=== PATIENT | female | born 1980 | race American Indian/Alaskan Native ===

== ENCOUNTER 2017-07-21 13:27 | Emergency (ER) | payer SELFPAY ==
[2017-07-21 14:08] VITALS: BP 187/112
[2017-07-21 14:46] LABS: Basophils % (Auto) 0.6 % (0.0-1.8); Eosinophils % (Auto) 1.8 % (0.0-4.3); Hematocrit 38.1 % (30.3-42.9); Hemoglobin 12.9 gm/dl (10.1-14.3); Mean Corpuscular HGB Conc 34 % (30-34); Mean Corpuscular Hemoglobin 30 pg (28-32); Mean Corpuscular Volume 88 fl (79-97); Platelet Count 271 K/mm3 (140-440); Red Blood Count 4.31 M/mm3 (3.65-5.03); Red Cell Distribution Width 13.7 % (13.2-15.2); White Blood Count 15.9 K/mm3 (4.5-11.0)
[2017-07-21 14:47] LABS: Bilirubin,Urine NEG (Negative); Blood,Urine NEG (Negative); Ketones,Urine NEG (Negative); Leukocyte Esterase,Urine NEG (Negative); Mucus,Urine 1+ /HPF; Nitrite,Urine NEG (Negative); Protein,Urine <15 mg/dL mg/dL (Negative)
== END 2017-07-21 18:46 | disposition left against medical advice (07) ==
LOC: ED 13:27
DX: N93.9 Abnormal uterine and vaginal bleeding, unspecified (principal); Z53.21 Procedure and treatment not carried out due to patient leaving prior to being seen by health care provider
CPT/HCPCS: 36415; 81001; 84702; 85025; 86850; 86900; 86901

== ENCOUNTER 2017-10-31 07:24 | Emergency (ER) | payer MEDICAID ==
[2017-10-31] MEDS ORDERED: LET TOPICAL TP ONE (10:31)
[2017-10-31] MEDS ORDERED: TYLENOL ONE (10:47)
[2017-10-31] MEDS ORDERED: TYLENOL PO ONE (10:53)
[2017-10-31] MEDS ORDERED: XYLOCAINE 2% INFILTRATI ONE ×2 (10:53→10:54)
[2017-10-31] MEDS ORDERED: TRIPLE ANTIBIOTIC TP ONE ×2 (11:19)
--- NOTE | 2017-10-31 11:28 | Emergency Department Report ---
ED Upper Extremity Inj HPI - General Chief Complaint: Extremity Injury, Upper Stated Complaint: RIGHT HAND PAIN Time Seen by Provider: 10/31/17 11:19 Source: patient Mode of arrival: Ambulatory Limitations: No Limitations - History of Present Illness Initial Comments: 36-year-old female that is 21 weeks comes in for getting a splinter in her right hand from the door. Patient point to the entry of the fifth digit that is transverse to the digit itself. Patient reports no known drug allergies. She reports a history of hypertension. MD Complaint: Injury to:: right Other Extremity Injury: Hand: Right Handedness: right Place: home Improves With: none - Related Data Allergies Allergy/AdvReac Type Severity Reaction Status Date / Time No Known Allergies Allergy Verified 07/21/17 14:08 ED Review of Systems ROS: Stated complaint: RIGHT HAND PAIN Other details as noted in HPI Constitutional: denies: chills, fever Eyes: denies: eye pain, eye discharge, vision change ENT: denies: ear pain, throat pain Respiratory: denies: cough, shortness of breath, wheezing Cardiovascular: denies: chest pain, palpitations Endocrine: no symptoms reported Gastrointestinal: denies: abdominal pain, nausea, diarrhea Genitourinary: denies: urgency, dysuria, discharge Musculoskeletal: denies: back pain, joint swelling, arthralgia Skin: other (splinter in her right hand). denies: rash, lesions Neurological: denies: headache, weakness, paresthesias Psychiatric: denies: anxiety, depression Hematological/Lymphatic: denies: easy bleeding, easy bruising ED Past Medical Hx - Past Medical History Previous Medical History?: Yes Hx Hypertension: Yes - Surgical History Past Surgical History?: No - Social History Smoking Status: Current Every Day Smoker Substance Use Type: None ED Physical Exam - General Limitations: No Limitations General appearance: alert, in no apparent distress - Head Head exam: Present: atraumatic, normocephalic - Eye Eye exam: Present: normal appearance - Neck Neck exam: Present: normal inspection - Expanded Upper Extremity Exam Right Hand Wrist exam: Present: tenderness, other (able to palpate the splinter. No drainage no swelling.) Vascular: Present: normal capillary refill - Neurological Exam Neurological exam: Present: alert, oriented X3 - Psychiatric Psychiatric exam: Present: normal affect, normal mood - Skin Skin exam: Present: warm, dry, intact, normal color. Absent: rash ED Course Vital Signs 10/31/17 10/31/17 08:14 11:29 Temperature 98.3 F Pulse Rate 89 76 Respiratory 16 18 Rate Blood Pressure 148/103 146/89 O2 Sat by Pulse 99 100 Oximetry ED Medical Decision Making - Medical Decision Making This patient's been evaluated by this provider fast track. Splinter was removed by this provider. Artery was cleaned and draped cleaned with Betadine. 3 mL of lidocaine 2% injected around the exit portion of the splinter where I was able to remove. Splinter was removed with curved hemostats. Patient was cleaned up and bandaged by nursing staff. Patient tolerated procedure well. Discussed with patient the signs of infection. Patient left before his provider could discharge her properly. 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 Patient verbalized understanding she reports that she will call and get an appointment this week. Critical care attestation.: If time is entered above; I have spent that time in minutes in the direct care of this critically ill patient, excluding procedure time. ED Disposition Clinical Impression: Proteinuria during Superficial foreign body (splinter) of fingers, without major open wound, infected Qualifiers: Encounter type: initial encounter Qualified Code(s): S60.459A - Superficial foreign body of unspecified finger, initial encounter Disposition: - TO HOME OR SELFCARE Is pt being admited?: No Does the pt Need Aspirin: No Condition: Stable Referrals: JENSEN MCKEON MD [Primary Care Provider] - 3-5 Days
[2017-10-31 11:32] VITALS: BP 146/89
[2017-10-31 12:32] LABS: Bacteria,Urine 1+ /HPF (Negative); Bilirubin,Urine NEG (Negative); Blood,Urine NEG (Negative); Color,Urine Yellow (Yellow); Mucus,Urine 1+ /HPF; Nitrite,Urine NEG (Negative)
--- NOTE | 2017-10-31 13:54 | Emergency Department Report ---
Blank Doc - Documentation Documentation: THis provider discussed with nurse Tang to recheck blood pressure. Patient was not able to be found to recheck blood pressure it appears the patient went AMA. This provider made attempt to contact patient on her cell phone to discuss her labs and concerns. Patient has not answer or call back.
== END 2017-10-31 13:00 | disposition home or self-care (01) ==
LOC: ED 07:24
DX: O26.892 Other specified pregnancy related conditions, second trimester (principal); S60.456A Superficial foreign body of right little finger, initial encounter; O12.12 Gestational proteinuria, second trimester; Z3A.21 21 weeks gestation of pregnancy; F17.200 Nicotine dependence, unspecified, uncomplicated; I10 Essential (primary) hypertension
CPT/HCPCS: 81001; 99283; A6250

== ENCOUNTER 2018-02-06 19:31 | Observation (INO) | payer BC, MEDICAID ==
[2018-02-06] MEDS ORDERED: LACTATED RINGERS 500 ML IV ONE (21:01)
[2018-02-06 21:15] LABS: Hemoglobin 11.8 gm/dl (10.1-14.3); Mean Corpuscular HGB Conc 36 % (30-34); Mean Corpuscular Hemoglobin 31 pg (28-32); Mean Corpuscular Volume 88 fl (79-97); Platelet Count 217 K/mm3 (140-440); Red Blood Count 3.76 M/mm3 (3.65-5.03); Red Cell Distribution Width 14.5 % (13.2-15.2)
[2018-02-06 21:31] LABS: Bilirubin,Urine NEG (Negative); Blood,Urine SM (Negative); Color,Urine Amber (Yellow); Mucus,Urine 1+ /HPF; Protein,Urine <15 mg/dL mg/dL (Negative)
[2018-02-06 21:42] LABS: Alanine Aminotransferase 15 units/L (7-56); Uric Acid 5.8 mg/dL (3.5-7.6)
[2018-02-06] MEDS ORDERED: APRESOLINE IV PRN (22:01)
[2018-02-06] MEDS: NORMODYNE PO SCH (22:54)
[2018-02-06] MEDS: NORVASC PO SCH (22:54)
[2018-02-06] MEDS ORDERED: LACTATED RINGERS 1,000 ML IV SCH (23:00)
[2018-02-07] MEDS ORDERED: AMBIEN PO PRN (00:07)
--- NOTE | 2018-02-07 09:01 | History and Physical Report ---
History of Present Illness Date of examination: 02/07/18 Date of admission: 02/06/18 22:10 Chief complaint: 35 weeks gestation with elevated BP. History of present illness: Patient is a 37 year old , LMP 06/04/17, EDC 03/11/18 at 35 weeks and 2 days gestation who was sent in for elevated BP. She has a history of chronic HTN and has been co-managed with [facility]. She has been on labetolol which was switched to aldomet and norvasc was added recently. Her 24-hr urine was not completed. She went to [facility] for a routine visit yesterday and her BP was found to be 165/95. On admission, her BP was 140/89, she denied any headache, visual disturbances or RUQ pain. NST is CAT 1, BPP is 05/03. 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 History: abnormal PAP smear, fibroids, herpes, trichomonas Family/Genetic History: none Social history: smoking, other (marijuana) - Obstetrical History Expected Date of Delivery: 03/11/18 Actual Gestation: 35 Week(s) 3 Day(s) : 6 Para: 3 Hx # Term Pregnancies: 1 Number of Pregnancies: 2 Spontaneous Abortions: 2 Number of Living Children: 2 #1 Gender: Female year: 1,[birth year] Birthweight: 3.9 kg Method of Delivery: Vaginal Gestational age at delivery: 40 Complications: none #2 year: 2,004 Birthweight: 2.04 kg Method of Delivery: Vaginal Gestational age at delivery: 34 Complications: other ( labor) #3 year: 2,014 Birthweight: 727 g Method of Delivery: Vaginal Gestational age at delivery: 28 Complications: other (PPROM) Medications and Allergies Allergies Allergy/AdvReac Type Severity Reaction Status Date / Time No Known Allergies Allergy Verified 07/21/17 14:08 Home Medications Medication Instructions Recorded Confirmed Last Taken Type Hydroxyprogesterone Caproat/Pf 1 syr IM QWEEK 02/06/18 02/06/18 01/31/18 History [[place] 250 mg/ml Vial] Labetalol HCl 300 mg PO QDAY 02/06/18 02/06/18 02/06/18 16:00 History Methyldopa 1 tab PO QDAY 0502/06/18 02/04/18 History amLODIPine [Norvasc] 5 mg PO DAILY 02/06/18 02/06/18 02/05/18 History Active Meds: Active Medications Amlodipine Besylate (Norvasc) 5 mg PO QDAY [facility] Last Admin: 02/06/18 22:54 Dose: 5 mg Hydralazine HCl (Apresoline) 5 mg IV Q30MIN PRN PRN Reason: Hypertension Lactated Ringer's (Lactated Ringers) 1,000 mls @ 125 mls/hr IV DIRECT JUHI Labetalol HCl (Normodyne) 300 mg PO BID [facility] Last Admin: 02/06/18 22:54 Dose: 300 mg Zolpidem Tartrate (Ambien) 10 mg PO QHS PRN PRN Reason: Insomnia Last Admin: 02/07/18 00:30 Dose: 10 mg - Vital Signs Vital signs: Vital Signs Pulse BP Pulse Ox 88 180/99 98 02/06/18 20:01 02/06/18 20:01 02/06/18 20:01 Temp Pulse Resp BP Pulse Ox 98.7 F 49 L 18 160/66 83 L 02/07/18 07:14 02/07/18 08:40 02/07/18 07:14 02/07/18 07:20 02/07/18 08:40 - Physical Exam Cardiovascular: Normal S1, Normal S2 Lungs: Positive: Clear to auscultation Vulva: both: normal Adnexa: both: normal Deep Tendon Reflex Grade: Normal +2 - Obstetrical FHR: category 1 Uterine Contraction Monitor Mode: External Cervical Dilatation: 0 Cervical Effacement Percentage: 30 station: -3 Uterine Contraction Pattern: Absent Results Result Diagrams: 02/07/18 09:33 02/06/18 20:56 Abnormal lab results 02/06/18 02/06/18 Range/Units 20:56 20:56 WBC 14.5 H (4.5-11.0) K/mm3 MCHC 36 H (30-34) % Creatinine 0.6 L (0.7-1.2) mg/dL Lactate Dehydrogenase 213 H (91-180) units/L All other labs normal. Assessment and Plan - Patient Problems (1) 35 weeks gestation of Current Visit: Yes Status: Acute Plan to address problem: Admit to Labor floor. (2) Rh negative state in antepartum period Current Visit: Yes Status: Acute Plan to address problem: For Rhogam after delivery. (3) Advanced maternal age (AMA) in Current Visit: Yes Status: Acute Plan to address problem: Genetics were normal. (4) Chronic hypertension affecting Current Visit: Yes Status: Acute Plan to address problem: Toxemia labs were normal. Continue BP, DTRs monitoring. Continuous monitoring. BP has become stable since admision. Will start magnesium if BP becomes elevated. Will induce labor if patient or baby becomes unstable. Case was discussed with [facility].
--- NOTE | 2018-02-07 09:31 | Progress Note ---
Assessment and Plan - Patient Problems (1) 35 weeks gestation of Current Visit: Yes Status: Acute (2) Rh negative state in antepartum period Current Visit: Yes Status: Acute (3) Advanced maternal age (AMA) in Current Visit: Yes Status: Acute Plan to address problem: Genetics were normal. (4) Pre-eclampsia superimposed on chronic hypertension Current Visit: Yes Status: Acute Plan to address problem: Magnesium sulfate. Monitor BP, Mg levels, DTRs, urine output. Continue monitoring. Labor induction as per [facility]. [facility] is on diversion, therefore, patient will be transferred to [facility]. Dr. Rajput was made aware. Reason for transfer was discussed with the patient. Subjective - Subjective Date of service: 02/07/18 Principal diagnosis: 35 weeks with superimposed pre-eclampsia Interval history: Patient is a 37 year old , LMP 06/04/17, EDC 03/11/18 at 35 weeks and 2 days gestation who was sent in for elevated BP. She has a history of chronic HTN and has been co-managed with [facility]. She has been on labetolol which was switched to aldomet and norvasc was added recently. Her 24-hr urine was not completed. She went to [facility] for a routine visit yesterday and her BP was found to be 165/95. On admission, her BP was 140/89, she denied any headache, visual disturbances or RUQ pain. NST is CAT 1, BPP is 8/8. Toxemia labs were normal. 24 -urine is in progress. During the night, her BP has been labile and she denied any symptoms. This AM, it started to be elevated to the 160's/90's despite rest, labetolol and norvasc. Cervix: closed/50%/-2. Objective - Vital Signs Vital Signs: Vital Signs - 12hr 02/06/18 02/06/18 02/06/18 21:36 21:41 21:42 Temperature Pulse Rate 71 72 72 Respiratory Rate Blood Pressure 161/85 O2 Sat by Pulse 99 99 Oximetry 02/06/18 02/06/18 02/06/18 21:46 21:51 21:56 Temperature Pulse Rate 75 75 71 Respiratory Rate Blood Pressure O2 Sat by Pulse 99 99 99 Oximetry 02/06/18 02/06/18 02/06/18 22:01 22:02 22:06 Temperature Pulse Rate 72 70 74 Respiratory Rate Blood Pressure 143/81 O2 Sat by Pulse 97 98 Oximetry 02/06/18 02/06/18 02/06/18 22:11 22:54 22:56 Temperature 98.0 F Pulse Rate 69 69 Respiratory 20 Rate Blood Pressure 176/97 O2 Sat by Pulse 97 Oximetry 02/06/18 02/06/18 02/06/18 22:58 23:03 23:12 Temperature Pulse Rate 64 70 Respiratory Rate Blood Pressure 176/97 O2 Sat by Pulse 99 99 95 Oximetry 02/06/18 02/06/18 02/06/18 23:22 23:23 23:43 Temperature Pulse Rate 77 39 L 83 Respiratory Rate Blood Pressure 159/87 145/77 O2 Sat by Pulse 0 L Oximetry 02/07/18 02/07/18 02/07/18 00:03 00:23 01:03 Temperature Pulse Rate 77 84 85 Respiratory Rate Blood Pressure 150/85 143/76 137/77 O2 Sat by Pulse Oximetry 02/07/18 02/07/18 02/07/18 01:23 01:43 02:43 Temperature Pulse Rate 86 93 H 83 Respiratory Rate Blood Pressure 142/75 154/103 138/72 O2 Sat by Pulse Oximetry 02/07/18 02/07/18 02/07/18 03:04 03:23 03:32 Temperature 98.3 F Pulse Rate 90 81 Respiratory 18 Rate Blood Pressure 150/82 141/67 O2 Sat by Pulse Oximetry 02/07/18 02/07/18 02/07/18 03:34 04:33 04:48 Temperature Pulse Rate 75 86 Respiratory Rate Blood Pressure 171/81 164/82 O2 Sat by Pulse 76 L Oximetry 02/07/18 02/07/18 02/07/18 05:19 05:50 06:20 Temperature Pulse Rate 82 78 76 Respiratory Rate Blood Pressure 154/80 140/78 163/98 O2 Sat by Pulse Oximetry 02/07/18 02/07/18 02/07/18 06:24 06:26 06:29 Temperature Pulse Rate 76 77 86 Respiratory Rate Blood Pressure 161/87 143/74 O2 Sat by Pulse 99 99 Oximetry 02/07/18 02/07/18 02/07/18 06:34 06:39 06:44 Temperature Pulse Rate 76 79 75 Respiratory Rate Blood Pressure O2 Sat by Pulse 99 100 99 Oximetry 02/07/18 02/07/18 02/07/18 06:49 07:10 07:14 Temperature 98.7 F Pulse Rate 74 Respiratory 18 Rate Blood Pressure 127/70 O2 Sat by Pulse 100 88 99 Oximetry 02/07/18 02/07/18 02/07/18 07:17 07:18 07:20 Temperature Pulse Rate 74 74 77 Respiratory Rate Blood Pressure 158/88 160/66 O2 Sat by Pulse 99 Oximetry 02/07/18 02/07/18 02/07/18 07:23 07:28 07:33 Temperature Pulse Rate 72 87 68 Respiratory Rate Blood Pressure O2 Sat by Pulse 100 99 99 Oximetry 02/07/18 02/07/18 02/07/18 07:38 07:55 08:00 Temperature Pulse Rate 68 81 Respiratory Rate Blood Pressure O2 Sat by Pulse 99 94 100 Oximetry 02/07/18 02/07/18 02/07/18 08:05 08:10 08:15 Temperature Pulse Rate 72 77 80 Respiratory Rate Blood Pressure O2 Sat by Pulse 99 98 100 Oximetry 02/07/18 02/07/18 02/07/18 08:26 08:31 08:32 Temperature Pulse Rate 92 H 55 L Respiratory Rate Blood Pressure O2 Sat by Pulse 86 78 L 80 L Oximetry 02/07/18 02/07/18 02/07/18 08:39 08:40 09:08 Temperature Pulse Rate 49 L Respiratory Rate Blood Pressure O2 Sat by Pulse 80 L 83 L 78 L Oximetry 02/07/18 02/07/18 02/07/18 09:16 09:22 09:28 Temperature Pulse Rate 54 L Respiratory Rate Blood Pressure O2 Sat by Pulse 86 80 L 86 Oximetry 02/07/18 02/07/18 09:29 09:34 Temperature Pulse Rate 75 87 Respiratory Rate Blood Pressure 160/92 O2 Sat by Pulse 94 98 Oximetry - Exam Cardiovascular: Normal S1, Normal S2 Lungs: Clear to auscultation Vulva: both: normal FHR: category 1 Uterine Contraction Monitor Mode: External Cervical Dilatation: 0 Cervical Effacement Percentage: 50 station: -3 Uterine Contraction Pattern: Absent Deep Tendon Reflex Grade: Normal but brisk +3 - Labs Labs: Abnormal Labs 02/06/18 02/06/18 20:56 20:56 WBC 14.5 H MCHC 36 H Creatinine 0.6 L Lactate Dehydrogenase 213 H Laboratory Results - last 24 hr 02/06/18 02/06/18 02/06/18 20:56 20:56 20:56 WBC 14.5 H RBC 3.76 Hgb 11.8 Hct 33.0 MCV 88 MCH 31 MCHC 36 H RDW 14.5 Plt Count 217 Creatinine 0.6 L Estimated GFR > 60 Uric Acid 5.8 AST 12 ALT 15 Lactate Dehydrogenase 213 H Urine Color [place] Urine Turbidity Clear Urine pH 6.0 Ur Specific [place] 1.019 Urine Protein <15 mg/dl Urine Glucose (UA) Neg Urine Ketones Neg Urine Blood Sm Urine Nitrite Neg Urine Bilirubin Neg Urine Urobilinogen 2.0 Ur Leukocyte Esterase Neg Urine WBC (Auto) 1.0 Urine RBC (Auto) 14.0 U Epithel Cells (Auto) 3.0 Urine Mucus 1+ Blood Type Antibody Screen 02/06/18 23:00 WBC RBC Hgb Hct MCV MCH MCHC RDW Plt Count Creatinine Estimated GFR Uric Acid AST ALT Lactate Dehydrogenase Urine Color Urine Turbidity Urine pH Ur Specific [place] Urine Protein Urine Glucose (UA) Urine Ketones Urine Blood Urine Nitrite Urine Bilirubin Urine Urobilinogen Ur Leukocyte Esterase Urine WBC (Auto) Urine RBC (Auto) U Epithel Cells (Auto) Urine Mucus Blood Type O NEGATIVE Antibody Screen Negative
[2018-02-07 09:56] LABS: Hemoglobin 11.7 gm/dl (10.1-14.3); Mean Corpuscular HGB Conc 36 % (30-34); Mean Corpuscular Hemoglobin 31 pg (28-32); Mean Corpuscular Volume 88 fl (79-97); Platelet Count 215 K/mm3 (140-440); Red Blood Count 3.75 M/mm3 (3.65-5.03); Red Cell Distribution Width 14.5 % (13.2-15.2)
[2018-02-07] MEDS ORDERED: MAGNESIUM SULFATE 4GM/100ML 4 GM/100 ML BAG IV ONE ×2 (09:57→10:04)
[2018-02-07] MEDS ORDERED: LACTATED RINGERS 1,000 ML IV SCH (10:00)
[2018-02-07] MEDS ORDERED: TYLENOL PO PRN (10:02)
[2018-02-07] MEDS ORDERED: COLACE PO PRN (10:02)
[2018-02-07] MEDS: NORMODYNE PO SCH (10:10)
[2018-02-07 10:13] LABS: Alanine Aminotransferase 14 units/L (7-56); Uric Acid 5.3 mg/dL (3.5-7.6)
[2018-02-07] MEDS: NORVASC PO SCH (10:23)
[2018-02-07] MEDS ORDERED: MAGNESIUM SULFATE 40GM/1000ML 40 GM/1,000 ML BAG IV SCH (11:00)
[2018-02-07 11:01] VITALS: BP 135/90
[2018-02-08] MEDS ORDERED: PRENATAL VITAMIN PO SCH (10:00)
== END 2018-02-07 11:25 | disposition other institution (70) ==
LOC: TRG 19:31 → LD 22:10
PROVIDERS: ADMIT Obstetrics & Gynecology; ATTEND Obstetrics & Gynecology
DX: O13.3 Gestational [pregnancy-induced] hypertension without significant proteinuria, third trimester (principal); Z3A.35 35 weeks gestation of pregnancy
CPT/HCPCS: 36415; 81001; 82565; 83615; 84450; 84460; 84550; 85027; 86850; 86900; 86901; 96365; G0378; J3475; J7120